=== PATIENT | female | born 1960 | race Caucasian/White ===

== ENCOUNTER → 2021-12-27 | Outpatient (CLI) | payer BC | LOC: US 14:35 | DX: R09.89 Other specified symptoms and signs involving the circulatory and respiratory systems (principal) | CPT/HCPCS: 93880 ==

== ENCOUNTER → 2022-01-12 | Outpatient (CLI) | payer BC | LOC: CT 07:37 | DX: I65.23 Occlusion and stenosis of bilateral carotid arteries (principal) | CPT/HCPCS: 70498; Q9967 ==

== ENCOUNTER 2022-03-24 18:08 | Emergency (ER) | payer BC ==
[~2022-03-24] VITALS: Ht 157.5 cm; Wt 45.4 kg
[2022-03-24 18:44] LABS: HEMOGLOBIN 10.7 gm/dl (12.3-15.3); RED BLOOD COUNT 4.09 M/UL (4.00-5.10)
[2022-03-24 19:06] LABS: WHITE BLOOD COUNT 38.6 K/UL (4.5-11.0)
[2022-03-24 19:12] LABS: BUN/CREATININE RATIO 43 (0-10)
[2022-03-25] MEDS ORDERED: ATENOLOL25 MG PO (09:52)
[2022-03-25] MEDS ORDERED: HYDROCHLOROTH12.5 MG PO (09:52)
[2022-03-25] MEDS ORDERED: CLOPIDOGREL75 MG PO (09:53)
[2022-03-25] MEDS ORDERED: VITAMIN D350 MC3 PO (09:53)
[2022-03-25] MEDS ORDERED: LISINOPRIL20 MG PO (09:54)
[2022-03-25] MEDS ORDERED: ATORVASTATIN CA40 MG PO (09:54)
[2022-03-25] MEDS ORDERED: ASPIRIN EC81 MG PO (09:55)
[2022-03-26 10:47] LABS: BUN/CREATININE RATIO 32 (0-10)
[2022-03-26 13:56] LABS: HEMOGLOBIN 8.5 gm/dl (12.3-15.3); RED BLOOD COUNT 3.31 M/UL (4.00-5.10)
[2022-03-27 05:34] LABS: HEMOGLOBIN 9.6 gm/dl (12.3-15.3); WHITE BLOOD COUNT 22.1 K/UL (4.5-11.0)
[2022-03-27 05:40] LABS: RED BLOOD COUNT 3.75 M/UL (4.00-5.10)
[2022-03-27 05:47] LABS: BUN/CREATININE RATIO 20 (0-10)
[2022-03-27 17:33] LABS: WHITE BLOOD COUNT 20.9 K/UL (4.5-11.0)
== END 2022-03-27 19:16 | disposition left against medical advice (07) ==
LOC: ER1 18:08 → CDU 03-27 10:56 → ER1 03-27 10:56
PROVIDERS: Emergency Medicine; Physician Assistant
DX: G45.9 Transient cerebral ischemic attack, unspecified (principal); E87.1 Hypo-osmolality and hyponatremia; D64.9 Anemia, unspecified; I10 Essential (primary) hypertension; E11.9 Type 2 diabetes mellitus without complications; E78.5 Hyperlipidemia, unspecified; K21.9 Gastro-esophageal reflux disease without esophagitis; Z20.822 Contact with and (suspected) exposure to COVID-19; J44.9 Chronic obstructive pulmonary disease, unspecified; F17.200 Nicotine dependence, unspecified, uncomplicated
CPT/HCPCS: 70450; 70496; 70498; 70551; 71045; 80048; 80053; 80202; 81001; 82436; 82550; 82553; 82570; 82962; 83605; 83935; 84133; 84300; 84484; 85025; 85610; 85730; 87040; 87086; 93005; 96365; 96366; 96375; 96376; 97161; 99285; J0692; J3370; J7030; J7070; Q9967; U0002